=== PATIENT | male | born 2000 | race Caucasian/White ===

== ENCOUNTER 2018-01-30 16:53 | Emergency (ER) | payer OTHER ==
[2018-01-30] MEDS ORDERED: HYDROXYZINE HCL 25 MG TABLET ONE (19:00)
[2018-01-30] MEDS ORDERED: TETANUS/DIPHTHERIA TOXOID [ADULT] 0.5 ML VIAL IM ONE (19:00)
== END 2018-01-30 19:24 | disposition home or self-care (01) ==
LOC: EDH 16:53
DX: S61.219D Laceration without foreign body of unspecified finger without damage to nail, subsequent encounter (principal); F41.9 Anxiety disorder, unspecified; W45.8XXD Other foreign body or object entering through skin, subsequent encounter
CPT/HCPCS: 90471; 90714